=== PATIENT | female | born 2005 | race Caucasian/White ===

== ENCOUNTER 2025-01-12 13:46 | Emergency (ER) | payer OTHER, SELFPAY ==
--- OUTSIDE RECORDS SUMMARY | 2025-01-12 13:49 | XMS_ITS | Clinical Summary ---
Author Organization [facility] Address [address] [place] [address] Care Team Providers Care Work Station Support Specialist Name Role Phone Cindy Grimm MD Primary Care Provider [phone] Source Comments [facility] hybris,non-owned Affiliates and Associated Physician Practices is amultiple site organization consisting of ambulatory clinics and hospital sitesin [place], [place], [place] and [place]. This disclosure is being madepursuant to the Care Everywhere program and may not contain all information available regarding this patient. Last updated 18.[facility] hybris Allergies No known active allergies Medications * Be aware that medications may not be up to date on this document. Alwaysverify current medications with the patient. acetaminophen, disintegrating, (TYLENOL CHILDRENS MELTAWAYS) 80 MG tablet Take 80 mg by mouth every 4 hours as needed. Active Active Problems Problem Noted Date Diagnosed Date Habitual toe-walking 06/27/2011 Social History Tobacco Use Types Packs/Day Years Used Date Smoking Tobacco: Never Assessed Comments Unknown Sex and Gender Information Value Date Recorded Sex Assigned at Not on file Legal Sex Female 6:38 AM SCREEN WRITER Gender Identity Not on file Sexual Orientation Not on file Last Filed Vital Signs Vital Sign Reading Time Taken Comments Blood Pressure 80/66 01/03/2012 1:40 PM CDT Pulse 92 01/03/2012 2:02 PM CDT Temperature - - Respiratory Rate 16 01/03/2012 2:02 PM CDT Oxygen Saturation 99% 01/03/2012 2:02 PM CDT Inhaled Oxygen Concentration - - Weight 32.4 kg (71 lb 6.9 oz) 01/03/2012 12:45 P M CDT Height - - Body Mass Index - - Plan of Treatment Health Maintenance Due Date Last Done Comments HIV SCREENING 12/25/2018 HPV VACCINE (1 - 3-dose series) 12/25/2018 CHLAMYDIA/GONORRHEA SCREENING 2019 MENINGOCOCCAL (Group B) VACC INE SHARED DECISION-MAKING (1 of 2 - Standard) 2019 HEPATITIS C SCREENING 12/21/2021 DTAP/TDAP/TD VACCINES (1 - Tdap) 12/25/2022 HEPATITIS B VACCINE (1 of 3 - 19+ 3-dose series) 12/25/2022 COVID-19 VACCINE (1 - 2023-2 5 season) 2024 DEPRESSION SCREENING 08/20/2024 INFLUENZA VACCINE (Season Ended) 2025 ZOSTER VACCINE (1 of 2) 12/25/2053 HIB VACCINE Aged Out No longer eligi ble based on patient's age to complete this topic MENINGOCOCCAL GROUPS A/C/Y/W VACCINE Aged Out No longer eligible b ased on patient's age to complete this topic PNEUMOCOCCAL VACCINE Aged Out No long er eligible based on patient's age to complete this topic Care Teams Work Station Support Specialist Relationship Specialty Start Date End Date Cindy Grimm MD [address] [place], [place] [id number] PCP - General 03/13/11
--- OUTSIDE RECORDS SUMMARY | 2025-01-12 13:49 | XMS_ITS | Referral Summary ---
Author Organization [facility] Healthcare Address [address] [place] [address] Care Team Providers Care Final Inspector Truck Trailer Name Role Phone Yue King NP Primary Care Provide r Encounters Date Type Department Care Team Description 01/08/2025 11:30 AM CDT Office Visit Marvin Montoya [address] [place] [address] [address] [place] [phone] Philly Babcock NP Well woman exam (Primary Dx); Screening for STDs (sexually transmitted diseases); Fibrocystic breast changes of both breasts; Chronic vulvitis 01/07/2025 Telephone Marvin Montoya [address] [place] [address] [address] [place] [phone] Philly Babcock NP 11/17/2024 9:45 AM CDT Office Visit [facility] Montoya [address] [place] [address] [address] [place] [phone] Philly Babcock NP Chronic vulvitis (Primary Dx); Vaginal irritation 10/16/2024 3:15 PM SCHEDULE CLERK Office Visit [facility] - [address] [place] [address] Arianna Elizabeth DO Otalgia of both ears (Primary Dx); Impacted cerumen of right ear from Last 3 Months Allergies No known active allergies Medications No known medications Active Problems Problem Noted Date Diagnosed Date Chronic vulvitis 12/08/2024 Assessment & Plan (01/08/2025 12:42 PM CDT): Continue use of triamcinolone steroid cream as needed and coconut oil 2-3 times weekly. Plan to refer to vulvar/vaginal specialist for further evaluation and management.Orders: Ambulatory referral to Gynecology; Future Assessment & Plan (12/08/2024 7:17 AM CDT): Vaginitis panel ordered. Encouraged use of triamcinolone steroid cream. Discussed coconut oil and would recommend using between flares and/or 2-3 times weekly. Consider referral to vulvar vaginal specialist. Acute vulvitis 09/02/2024 Assessment & Plan (09/02/2024 12:23 PM SCHEDULE CLERK): Plan to stop using the triamcinolone cream for now - patient is now aware that the steroid cream is not made for daily use, which I feel may be causing more irritation to the skin of the vulva at this time. Encouraged loose clothing and cotton underwear. Baking soda sitz baths. Apply Nystatin cream BID for the next few days for possible francheska dermatitis to external skin of vulva/perineum. If patient continues to be prone to vaginal pH imbalances, informed we can discuss the use of vaginal boric acid and probiotics at upcoming scheduled visit. Fibrocystic breast changes of both breasts 07/04 Assessment & Plan (01/08/2025 12:42 PM CDT): Encouraged patient to decrease caffeine in diet and to wear a good fitting, supportive bra. Some research has shown that supplements, such as Evening Devils Elbow Oil (EPO), vitamin E, and B complex help reduce breast inflammation and pain associated with fibrocystic breast disease. Patient aware can try taking supplements daily as directed if desires. Advised over time, pain and discomfort from fibrocystic breast disease can lessen with age. Can use OTC anti-inflammatory medications as directed for discomfort. Assessment & Plan (07/04/2024 11:56 AM SCHEDULE CLERK): Encouraged patient to decrease caffeine in diet and to wear a good fitting, supportive bra. Some research has shown that supplements, such as Evening Devils Elbow Oil (EPO), vitamin E, and B complex help reduce breast inflammation and pain associated with fibrocystic breast disease. Patient aware can try taking supplements daily as directed if desires. Advised over time, pain and discomfort from fibrocystic breast disease can lessen with age. Can use OTC anti-inflammatory medications as directed for discomfort. Dysfunction of both eustachian tubes 05/14/2024 Assessment & Plan (05/15/2024 10:09 AM CDT): Avoid ear cleaning techniques Avoid water to ears Call with next ear infection for appointment as soon as possible Impacted cerumen of right ear 05/14/2024 Assessment & Plan (10/16/2024 3:12 PM SCHEDULE CLERK): Avoid ear cleaning techniques Vinegar and alcohol recipe discussed and Handout provided Assessment & Plan (05/15/2024 10:09 AM CDT): Avoid ear cleaning techniques Avoid water to ears Call with next ear infection for appointment as soon as possible Otalgia of both ears 05/14/2024 Assessment & Plan (10/16/2024 3:12 PM SCHEDULE CLERK): TMJ discussed and Handout provided Assessment & Plan (05/14/2024 2:42 PM CDT): TMJ discussed and Handout provided 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 Never 10/13/2019 Average Number of Drinks Not on file 020 Frequency of Binge Drinking Not on file 09/21 PHQ-2 Answer Date Recorded PHQ-2 Total Score (If total score is 3 or more points, staff should administer the PHQ-9) 0 01/08/2025 Comments No Sex and Gender Information Value Date Recorded Sex Assigned at Not on file Legal Sex Female 9:14 AM SCHEDULE CLERK Gender Identity Not on file Sexual Orientation Not on file Last Filed Vital Signs Vital Sign Reading Time Taken Comments Blood Pressure 108/70 01/08/2025 11:31 AM CDT Pulse 96 05/14/2024 2:18 PM CDT Temperature 37.1 C (98.8 F) 12/10/2021 1:16 PM CDT Respiratory Rate 18 05/14/2024 2:18 PM CDT Oxygen Saturation 98% 05/14/2024 2:18 PM CDT Inhaled Oxygen Concentration - - Weight 60.3 kg (133 lb) 01/08/2025 11:31 AM CDT Height 170.2 cm (5' 7) 01/08/2025 11:31 AM CDT Body Mass Index 20.83 01/08/2025 11:31 AM CDT Plan of Treatment Not on file Procedures Procedure Name Priority Date/Time Associated Diagnosis Comments SUREAB ADVANCED VAGINITIS, TMA Routine 11/17/2024 10:28 AM CDT Vaginal irritation OK REMOVAL IMPACTED CERUMEN INSTRUMENTATION UNILAT Routine 10/16/2024 3:15 PM SCHEDULE CLERK Impacted cerumen of right ear from Last 3 Months Results * SureSwab Advanced Vaginitis, TMA Endocervical/vaginal (11/17/2024 10:28 AM CDT) Sureab(R) ADV Bacterial vaginosis (BV), TMA NEGATIVE NEGATIVE [facility] Francheska species NOT DETECTED NOT DETECTED [facility] Francheska glabrata NOT DETECTED NOT DETECTED [facility] Comment: Francheska species C. albicans, C. tropicalis, C. parapsilosis, and/or C. dubliniensis can be detected, but not differentiated, in the Francheska spp. result. Trichomonas vaginalis (TV), TMA NOT DETECTED NOT DETECTED [facility] Endocervical/vag inal 11/17/2024 10:28 AM CDT 11/18/2024 5:54 AM CDT Philly Babcock NP LAB MICROBIOLOGY - GENERAL ORDER JODY Final Result [facility] [address] [id number] * OK REMOVAL IMPACTED CERUMEN INSTRUMENTATION UNILAT (10/16/2024 3:15 PM SCHEDULE CLERK) Narrative Arianna Elizabeth DO - 10/16/2024 3:15 PM SCHEDULE CLERK Arianna Elizabeth DO 10/16/2024 4:13 PM Ear Cerumen Removal Performed by: Arianna Elizabeth DO Authorized by: Arianna Elizabeth DO Consent Given by: Patient Timeout: prior to procedure the correct patient, procedure, and site was verified Verbal consent obtained: Yes Written consent obtained: No Risks, alternatives, and patient questions discussed: Yes Preparation: Patient was prepped using a clean technique Location: R ear R ear cerumen impacted?: Yes R ear method of removal: Instrumentation and magnification R ear instrumentation: Curette R ear magnification: Operating microscope Inspection: TM intact Hearing quality: Improved Patient tolerance: Patient tolerated the procedure well with no immediate complications Arianna Elizabeth DO IN CLINIC/BEDSIDE ORDERABLES Final Result from Last 3 Months Insurance [facility] [employer] ACCESS ANTHEM ACCESS CHOICE Care Teams Final Inspector Truck Trailer Relationship Specialty Start Date End Date Yue King NP [address] [place] [address] PCP - General Emergency Medicine 03/14/24
--- OUTSIDE RECORDS SUMMARY | 2025-01-12 13:49 | XMS_ITS | Clinical Summary ---
Author Organization [facility] Address [address] [place] [address] Phone Care Team Providers Care Motor Runner Name Role Phone Yue King APRN, CNP Primary Care [facility] Allergies No known active allergies Medications No known medications Active Problems No known active problems Encounters Date Type Department Care Team Description 01/10[facility]20[facility] [address] [place] [phone] Yue King APRN, CNP Appointment from Last 3 Months Immunizations Immunization Administration Dates Next Due DTAP VACCINE 05/03/2009, 5,07/25/2004,04/27,03/16/2004 HEP B/HIB Combined Vaccine 07/25/2004,03/16/2004 Hepatitis A Vaccine, Pediatric/adolescent, 2 Dose Schedule 03/24/2015,05/03/2009 Hepatitis A, Pediatric, Unsp ecified Formulation 05/03/2009 Hepatitis B Vaccine, Pediatric/adolescent 2003 Hib Vaccine,unspecified Formulation 04/04/2005,0 04/27/2004 Human Papillomavirus (HPV) 9 -valent Vaccine 09/22/2015,05/26/2015,03/24/2015 Inactivated Polio Vaccine 05/03/2009,03/2005,07/25/2004,04/27,03/16/2004 Influenza Vaccine,unspecifie d Formulation 08/14/2007 MMR Vaccine 05/03/2009,04/04/2005 Meningococcal MCV4O 03/21/2021 Meningococcal Vaccine 03/24/2015 Pneumococcal PCV, Unspecifie d Formulation 07/25/2004,04/27/2004,03/16/2004 TDAP Vaccine 03/24/2015 Varicella Vaccine Live 05/03/2009,2004 Social History Tobacco Use Types Packs/Day Years Used Date Smoking Tobacco: Never Passive Smoke Exposure: Never Smokeless Tobacco: Never Tobacco Cessation:Counseling Given: Not Answered Alcohol Use Standard Drinks/Week Comments Not Currently 0 (1 standard drink = 0.6 oz pur e alcohol) [facility] Utilities Answer Date Recorded In the past 12 months has th e electric, gas, oil, or water company threatened to shut off services in your home? No 04/18/2024 Social Connection and Isolation Panel [NHANES] A nswer Date Recorded In a typical week, how many times do you talk on the phone with family, friends, or neighbors? Three times a week 04/18/20 How often do you get togethe r with friends or relatives? Three times a week 04/18/2024 How often do you attend chur ch or cheondoism services? 1 to 4 times per year 04/18/2024 Do you belong to any clubs o r organizations such as moravian groups, unions, fraternal or athletic groups, or school groups? No 04/18/2024 How often do you attend meet ings of the clubs or organizations you belong to? Never 04/18/2024 Are you , , di vorced, , never , or living with a partner? Never 04/18/2024 AUDIT-C Answer Date Recorded Q1: How often do you have a drink containing alcohol? Never 04/18/2024 Q2: How many drinks containi ng alcohol do you have on a typical day when you are drinking? Patient does not drink Q3: How often do you have si x or more drinks on one occasion? Never 04/18/2024 Overall Financial Resource Strain (CARDIA) Answe r Date Recorded How hard is it for you to pa y for the very basics like food, housing, medical care, and heating? Not hard at all 04/18/2024 [facility] [place] of Occupat ional Health - Occupational Stress Questionnaire Answer Date Recorded Do you feel stress - tense, restless, nervous, or anxious, or unable to sleep at night because your mind is troubled all the time - these days? Not at all 04/18/2024 Exercise Vital Sign Answer Date Recorde d On average, how many days pe r week do you engage in moderate to strenuous exercise (like a brisk walk)? 2 days 04/18/2024 On average, how many minutes do you engage in exercise at this level? 20 min 04/18/2024 Hunger Vital Sign Answer Date Recorded Within the past 12 months, y ou worried that your food would run out before you got the money to buy more. Never true 04/18/20 24 Within the past 12 months, t he food you bought just didn't last and you didn't have money to get more. Never true 04/18/2024 PRAPARE - Transportation Answer Date Re corded In the past 12 months, has l ack of transportation kept you from medical appointments or from getting medications? No 03/22 In the past 12 months, has l ack of transportation kept you from meetings, work, or from getting things needed for daily living? No 04/18/2024 Housing Stability Vital Sign Answer Amauri e Recorded In the last 12 months, was t here a time when you were not able to pay the mortgage or rent on time? No 04/18/2024 In the past 12 months, how m any times have you moved where you were living? 0 04/18/2024 At any time in the past 12 m [facility], were you homeless or living in a fpc (including now)? No 04/18/2024 Sexually Active Control Partners Comments Not Currently Comments No Sex and Gender Information Value Date Recorded Sex Assigned at Not on file Legal Sex Female 8:35 PM CDT Gender Identity Not on file Sexual Orientation Not on file Last Filed Vital Signs Vital Sign Reading Time Taken Comments Blood Pressure 98/64 09/27/2024 12:47 PM DEBURRING AND TOOLING MACHINE OPERATOR Pulse 97 09/27/2024 12:47 PM DEBURRING AND TOOLING MACHINE OPERATOR Temperature 36.3 C (97.4 F) 09/27/2024 12:47 PM DEBURRING AND TOOLING MACHINE OPERATOR Respiratory Rate 14 09/27/2024 12:47 PM DEBURRING AND TOOLING MACHINE OPERATOR Oxygen Saturation 99% 09/27/2024 12:47 PM DEBURRING AND TOOLING MACHINE OPERATOR Inhaled Oxygen Concentration - - Weight 65 kg (143 lb 4 oz) 04/18/2024 9:38 AM CD T Height 170.2 cm (5' 7) 04/18/2024 9:38 AM CDT Body Mass Index 22.44 04/18/2024 9:38 AM CDT Plan of Treatment Upcoming Encounters Date Type Department Care Team (Late st Contact Info) Description 01/16/2025 11:00 AM CDT [facility] - Wing [address] [place] [address] uYe King APRN, PUMP MECHANIC [address] [place] [address] Health Maintenance Due Date Last Done Comments Meningococcal B Immunization (1 of 2 - Standard) 2019 SARS-COV-2 Immunization (1 - season) 2024 Pap Smear 12/25/2024 DTaP/Tdap/Td Immunization (7 - Td or Tdap) 03/24/2025 03/24/2015, 05/03/2009, 06/27/2005, Additional history exists Influenza Immunization (Season Ended) 2025 08/14/2007 Respiratory Syncytial Virus (RSV) Immunization (Adult) (1 - 1-dose 75+ series) 12/25/2078 Hepatitis B Immunization Completed 004, 03/16/2004, 2003 Pneumococcal Immunization Combined Aged Out 07/25/2004, 04/27/2004, 03/16/2004 No longer eligible based on patient's age to complete this topic Measles Mumps Rubella (MMR) Immunization Discontinued 05/03/2009, 04/04/2005 Polio (IPV) Immunization Discontinued 009, 06/27/2005, 07/25/2004, Additional history exists Varicella Immunization Discontinued 05/03/2009, 2004 Hepatitis A Immunization Discontinued 015, 05/03/2009, 05/03/2009 Human Papillomavirus (HPV) Immunization Completed 09/22/2015, 05/26/2015, 03/24/2015 Meningococcal Immunization (ACWY) Completed 03/21/2021, 03/24/2015 Hepatitis C Virus (HCV) Screening Completed 11/20/2023 Rotavirus Immunization Aged Out No lo nger eligible based on patient's age to complete this topic Procedures Procedure Name Priority Date/Time Associated Diagnosis Comments HEPATITIS C ANTIBODY Routine 11/20/2023 2:15 PM CDT Preventative health care (Adult) from Last 3 Months or Most Recently Relevant to Health Maintenance Results * HEPATITIS C ANTIBODY (11/20/2023 2:15 PM CDT) hepatitis C antibody 0.12 <1 S/CO 11/20/2023 9:17 PM CDT [facility] Comment: Signal/Cutoff ratio < 0.79 is Nondetected Signal/Cutoff ratio 0.80-0.99 is Grayzone Signal/Cutoff ratio > 0.99 is Detected Supplemental assays are recommended if signal/cutoff ratio is >/=1.00. Signal/cutoff ratio result >/= 5.00 is 97% predictive of positivity for recombinant immunoblot assay (RIBA) and will be reported to the [place] Department of Public Health as required. Blood Venipuncture / Unknown 11/20/2023 2:15 PM CDT 11/20/2023 2:15 PM CDT us Yue King APRN, JANICE CHEMISTRY ORDER JODY Final Result [facility] [address] [place] [address], [place] from Last 3 Months or Most Recently Relevant to Health Maintenance Insurance [facility] Care Teams Motor Runner Relationship Specialty Start Date End Date Yue King APRN, PUMP MECHANIC [address] [place] [address] PCP - General Advanced Practice Nurse 11/20/23
--- OUTSIDE RECORDS SUMMARY | 2025-01-12 13:49 | XMS_ITS | Clinical Summary ---
Author Organization [facility] Address [address] [place] [address] Care Team Providers Care Transferrer Name Role Phone Yue King NP Primary Care Provide r Allergies No known active allergies Medications No [...] 09/02/2024 Assessment & Plan (09/02/2024 12:23 PM EPIC APPLICATION COORDINATOR): Plan to stop using the triamcinolone cream [...] has shown that supplements, such as Evening Quinault Oil (EPO), vitamin E, and B complex help reduce breast inflammation and pain associated with fibrocystic breast disease. Patient aware can try taking supplements daily as directed if desires. Advised over time, pain and discomfort from fibrocystic breast disease can lessen with age. Can use OTC anti-inflammatory medications as directed for discomfort. Assessment & Plan (07/04/2024 11:56 AM EPIC APPLICATION COORDINATOR): Encouraged patient to decrease caffeine in diet and to wear a good fitting, supportive bra. Some research has shown that supplements, such as Evening Quinault Oil (EPO), vitamin E, and B complex [...] 05/14/2024 Assessment & Plan (10/16/2024 3:12 PM EPIC APPLICATION COORDINATOR): Avoid ear cleaning techniques Vinegar and alcohol recipe discussed and Handout provided Assessment & Plan (05/15/2024 10:09 AM CDT): Avoid ear cleaning techniques Avoid water to ears Call with next ear infection for appointment as soon as possible Otalgia of both ears 05/14/2024 Assessment & Plan (10/16/2024 3:12 PM EPIC APPLICATION COORDINATOR): TMJ discussed and Handout provided Assessment & Plan (05/14/2024 2:42 PM CDT): TMJ discussed and Handout provided 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 18 Encounters Date Type Department Care Team Description 01/08/2025 11:30 AM CDT Office Visit [facility] [address] [place] [address] [address] [place] [address] Philly Babcock NP Well woman exam (Primary Dx); Screening for STDs (sexually transmitted diseases); Fibrocystic breast changes of both breasts; Chronic vulvitis 01/07/2025 Telephone [facility] [address] [place] [address] [address] [place] [address] Philly Babcock NP 11/17/2024 9:45 AM CDT Office Visit [facility] [address] [place] [address] Philly Babcock NP Chronic vulvitis (Primary Dx); Vaginal irritation 10/16/2024 3:15 PM EPIC APPLICATION COORDINATOR Office Visit [facility] - COUNTS INCLUDE [facility] BEDS AT [facility] [address] [facility] [address] [place] [address] Arianna Elizabeth, Otalgia of both ears (Primary Dx); Impacted cerumen of right ear from Last 3 Months Medical History Medical History Date Comments Congenital contracture of gastrocnemius Otitis media 06/26/2018 no cough or leeroy estion-treated with Amoxicillin-cleared Family History Medical History Relation Name Comments Breast cancer Neg Hx Social History Tobacco Use Types Packs/Day Years [...] on file Legal Sex Female 9:14 AM EPIC APPLICATION COORDINATOR Gender Identity Not on file Sexual Orientation Not on file Obstetrics History Para Term AB IAB SAB Ectopic Multiple Livin g Live Births 0 0 0 0 0 0 0 0 0 0 0 Last Filed Vital Signs Vital Sign Reading [...] 01/08/2025 11:31 AM CDT Plan of Treatment Health Maintenance Due Date Last Done Comments Cervical Cancer Screening 2003 Hepatitis C Screening 2003 Meningococcal B Vaccine (1 of 2 - Standard) 2019 DTaP/Tdap/Td Vaccine (7 - Td or Tdap) 03/24/2025 03/24/2015, 05/03/2009, 06/27/2005, Additional history exists Influenza Vaccine (Season Ended) 2025 05/03/2009, 08/14/2007 Depression Screening 01/08/2026 01/08/2025, 10/13/19 20 Regular Well Visit/Exam 18-64 01/08/2026 01/08/2025 Hepatitis B Screening Completed 07/25/2004 , 03/16/2004, 2003 Pneumococcal vaccine <65 Aged Out 004, 04/27/2004, 03/16/2004 No longer eligible based on patient's age to complete this topic Varicella Vaccines Completed 05/03/2009, 2004 HPV Vaccines Completed 09/22/2015, 10/0 02/2015, 03/24/2015 Meningococcal Vaccine Completed 03/21/2021, 015 Procedures Procedure Name Priority Date/Time Associated Diagnosis Comments SURESWAB ADVANCED VAGINITIS, TMA Routine 11/17/2024 10:28 AM CDT Vaginal irritation [place] REMOVAL IMPACTED CERUMEN INSTRUMENTATION UNILAT Routine 10/16/2024 3:15 PM EPIC APPLICATION COORDINATOR Impacted cerumen of right ear from Last 3 Months Results * SureSwab Advanced Vaginitis, TMA Endocervical/vaginal (11/17/2024 10:28 AM CDT) SureSwab(R) ADV Bacterial vaginosis (BV), TMA NEGATIVE NEGATIVE [facility] Francheska species NOT DETECTED NOT DETECTED [facility] Francheska glabrata NOT DETECTED NOT DETECTED [facility] Comment: Francheska species C. albicans, C. tropicalis, C. parapsilosis, and/or C. dubliniensis can be detected, but not differentiated, in the Francheska spp. result. Trichomonas vaginalis (TV), TMA NOT DETECTED NOT DETECTED [facility] Endocervical/vag inal 11/17/2024 10:28 AM CDT 11/18/2024 5:54 AM CDT Philly Babcock [facility] MICROBIOLOGY - GENERAL ORDER JODY Final Result [facility] [address] [place] [address] * [place] REMOVAL IMPACTED CERUMEN INSTRUMENTATION UNILAT (10/16/2024 3:15 PM EPIC APPLICATION COORDINATOR) Narrative Arianna Elizabeth DO - 10/16/2024 3:15 PM EPIC APPLICATION COORDINATOR Arianna Elizabeth DO 10/16/2024 4:13 PM Ear [...] Final Result from Last 3 Months Insurance [facility] [employer] [place] ANTHEM ACCESS ANTHEM ACCESS CHOICE Care Teams Transferrer Relationship Specialty Start Date End Date Yue King NP [address] [place] [address] PCP - General Emergency Medicine 03/14/24
[2025-01-12 13:55] VITALS: BP 135/79; PULSE 106; RESP 20; TEMP 36.6; O2SAT 99
--- NOTE | 2025-01-12 14:16 | ED_ITS ---
HPI - General Adult General Chief complaint: Nausea/Vomiting/Diarrhea Stated complaint: Stomach Pain/Chest Pain Source: patient Mode of arrival: ambulatory Limitations: no limitations History of Present Illness HPI narrative: 19 y/o female presented for several complaints. Today she reports heaviness in the chest, feeling like she cannot take a full breath, heart racing and fatigue. Also, She endorses since early December, she has had low abdominal discomfort which has since moved up to the stomach area, and now feels like it is in the chest. Endorses nausea and the need to belch when eating. Has taken apple cider vinegar gummy and GasX, but stopped when it made it worse. Says these symptoms are worse when sitting up, better when laying down. Denies cough, sob, wheezing, vomiting or fever. Related Data Allergies Allergy/AdvReac Type Severity Reaction Status Date / Time No Known Allergies Allergy Unverified 01/12/25 14:22 Review of Systems Review of Systems: CONSTITUTIONAL: Denies body aches, fever, chills, or sweats. EYES: Denies visual changes, redness, or discharge. ENT: Denies rhinorrhea, congestion, sore throat, or otalgia. CARDIOVASCULAR: reports chest pain, palpitations, denies edema. RESPIRATORY: Denies cough or dyspnea. GASTROINTESTINAL: Reports belching and nausea when eating Denies abdominal pain, vomiting, or diarrhea. GENITOURINARY: Denies dysuria or hematuria. SKIN: Denies rash, itching, or wounds. MUSCULOSKELETAL: Denies back pain, joint pain, or myalgia. NEUROLOGIC: Denies dizziness, headache, numbness, tingling, or weakness. PSYCH: Denies depression or anxiety. All systems reviewed & are unremarkable except as noted in HPI and below [facility] Comments At time of signature, I have reviewed and agree with nursing past medical, surgical, social and family history unless otherwise noted. Please see nursing chart for further information. There is no relevant family history pertinent to the presenting complaint Exam Narrative: GENERAL: Well-appearing EYES: EOMI. No redness or drainage. Conjunctivae normal. ENT: Mucous membranes pink and moist. No rhinorrhea. NECK: Normal AROM. Supple. No lymphadenopathy. CHEST: No respiratory distress. Clear to auscultation. HEART: Tachycardic and Regular. No murmur appreciated. Normal peripheral pulses. SKIN: Warm, dry, no rash. Capillary refill normal. Normal skin turgor. NEURO: No focal deficits. Alert and oriented x3. Gait steady. PSYCH: flat affect. Course Course Emergency Course: Patient is aware of diagnosis, understands and agrees to treatment plan. Anticipatory guidance given. Patient agrees to follow-up as directed and is aware of reasons to seek care at the emergency department. Portions of this record may have been created with voice recognition software Level of Care: Express Care Visit Vital Signs Vital signs: Vital Signs Temperature 97.9 F 01/12/25 13:55 Pulse Rate 106 H 01/12/25 13:55 Respiratory Rate 20 01/12/25 13:55 Blood Pressure 135/79 01/12/25 13:55 Pulse Oximetry 99 01/12/25 13:55 Oxygen Delivery Room Air 01/12/25 13:55 Temperature 97.9 F 01/12/25 13:55 Pulse Rate 106 H 01/12/25 13:55 Respiratory Rate 20 01/12/25 13:55 Blood Pressure 135/79 01/12/25 13:55 Pulse Oximetry 99 01/12/25 13:55 Oxygen Delivery Room Air 01/12/25 13:55 Medical Decision Making MDM Narrative Medical decision making narrative: Discussed physical exam findings; pt declined EKG at this time due to financial concerns. she is advised ER transfer for palpitations, fatigue, tachycardia. While pt is agreeable to go to an ER she will be going home at this time and does not know which ER she will go to later, says she will discuss it with family. Advised supportive measures and signs/symptoms to go to the ER. Pt is appropriate for outpt treatment and f/u. Differential Diagnosis Differential Diagnosis: STEMI, AAA, PE, pneumothorax, cardiac tamponade, esophageal rupture, pneumonia, GERD, musculoskeletal pain, endocarditis, pericarditis, URI, bronchitis, anxiety Vital Signs Vital Signs: Vital Signs Temperature 97.9 F 01/12/25 13:55 Pulse Rate 106 H 01/12/25 13:55 Respiratory Rate 01/12/25 13:55 Blood Pressure 135/79 01/12/25 13:55 Pulse Oximetry 99 01/12/25 13:55 Oxygen Delivery Room Air 01/12/25 13:55 Temperature 97.9 F 01/12/25 13:55 Pulse Rate 106 H 01/12/25 13:55 Respiratory Rate 20 01/12/25 13:55 Blood Pressure 135/79 01/12/25 13:55 Pulse Oximetry 99 01/12/25 13:55 Oxygen Delivery Room Air 01/12/25 13:55 reviewed Discharge Plan Discharge Clinical Impression: Chest pain Patient Disposition: Left Against Medical Advice Condition: Stable Patient Language: Turkmen Follow-up/Referrals: PHYSICIAN,WEDDING DAY COORDINATOR [Primary Care Provider] - Time of Disposition: 14:56
== END 2025-01-12 14:33 | disposition left against medical advice (07) ==
LOC: EXPBETH 13:53
PROVIDERS: Emergency Provider Nurse Practitioner Family
DX: R07.9 Chest pain, unspecified (principal)
CPT/HCPCS: 99202; G0463